=== PATIENT | male | born 1985 | race African-American/Black ===

== ENCOUNTER 2019-10-26 01:05 | Emergency (ER) | payer SELFPAY ==
[2019-10-26] VITALS (7 sets, daily range): BP systolic 111–128; BP diastolic 64–86; PULSE 80–109; RESP 16–20; TEMP 36.7; O2SAT 96–100
--- NOTE | ~2019-10-26 | CT_ITS ---
EXAMINATION: CT abdomen pelvis w con INDICATION: Abdominal pain, history of Crohn disease TECHNIQUE: Computed tomographic images of the abdomen and pelvis were obtained after the administrati on of 100 cc of Omnipaque 350 intravenous contrast. The dose-length product (DLP) was 497.14 mGy-cm. Automated exposure control and iterative reconstruction technique were employed. COMPARISON: None available FINDINGS: The lung bases are clear. The heart size is normal. The liver, spleen, pancreas, gallbladde r, and adrenal glands are normal. The kidneys are unremarkable. No pathologically enlarged abdominal or pelvic lymph nodes are identified. There is no free intraperitoneal gas. There is wall thickening and stricture of the terminal ileum was mild dilation of the terminal ileum immediately proximal to t he affected segment. Mild wall thickening is also seen throughout the ascending and transverse colon. A Seton stitch is noted. IMPRESSION: 1. Terminal ileitis and mild colitis of the ascending and transverse colon, consistent with history o f Crohn disease. Reviewed, dictated and finalized at location A. IMPRESSION: 1. Terminal ileitis and mild colitis of the ascending and transverse colon, con sistent with history of Crohn disease.
[2019-10-26 01:34] LABS: Basophils Percent Auto 0.4 % (0.2-1.2); Eosinophils Absolute Auto 0.3 K/mm3 (0-0.3); Eosinophils Percent Auto 2.8 % (0-4.4); Hematocrit 46.6 % (42.0-52.0); Hemoglobin 15.5 g/dL (14.0-18.0); Immature Granulocyte Absolute 0.07 K/mm3 (0.00-0.031); Immature Granulocyte Percent A 0.8 % (0-0.5); Lymphocytes Absolute Auto 0.88 K/mm3 (0.9-3.2); Lymphocytes Percent Auto 9.8 % (18.3-44.2); Mean Corpuscular HGB Conc 33.3 g/dl (32-36); Mean Corpuscular Hemoglobin 30.2 pg (26-34); Mean Corpuscular Volume 90.8 fl (80-100); Mean Platelet Volume 9.9 fl (7.4-10.4); Monocytes Absolute Auto 1.3 K/mm3 (0.1-0.6); Monocytes Percent Auto 14.7 % (2.6-8.5); Neutrophils Absolute Auto 6.4 K/mm3 (1.3-6.7); Neutrophils Percent Auto 71.5 % (45.5-73.1); Platelet Count Result 314 k/mm3 (150-375); Red Blood Count 5.13 M/mm3 (4.6-6.20); Red Cell Distribution Width 13.8 % (11.5-14.5)
[2019-10-26 01:41] LABS: Add Urine Microscopic? YES; Appearance Urine Clear (Clear); Bacteria Urine Trace /hpf; Bilirubin Urine Negative (Negative); Blood Urine 1+ (Negative); Color Urine Yellow (Yellow); Glucose Urine UA 3+ mg/dL (Negative); Ketones Urine Negative (Negative); Leukocyte Esterase Ur Negative LEU/UL (Negative); Mucus Urine Few /lpf; Nitrate Urine Negative (Negative); Protein Urine 1+ mg/dL (Negative); RBC Urine 0-2 /hpf (0-2); Specific Grav Ur 1.028 (1.001-1.035); Urobilinogen Urine Negative mg/dL (<2.0); WBC Urine 0-3 /hpf
[2019-10-26 01:46] LABS: Alanine Aminotransferase 89 U/L (4-50); Albumin Level 4.1 g/dL (3.5-5.1); Alkaline Phosphatase 351 U/L (38-126); Aspartate Amino Transferase 91 U/L (17-59); Bilirubin,Total 0.5 mg/dL (0.2-1.3); Blood Urea Nitrogen 12 mg/dL (9-20); Calcium 9.1 mg/dL (8.4-10.2); Carbon Dioxide 23 mmol/L (22-30); Chloride 102 mmol/L (98-107); Estimated Glomerular Filt Rate > 60; Glucose 349 mg/dL (75-110); Lipase 124 U/L (23-300); Potassium 4.1 mmol/L (3.4-5.0); Sodium 134 mmol/L (137-145)
[2019-10-26] MEDS: MORPHINE SULFATE 4 MG/ML INJ IV PUSH (02:05)
--- NOTE | 2019-10-26 05:18 | ED.ABDPAIN ---
HPI - Abdominal Pain General Chief Complaint: Abdominal Pain Stated Complaint: Katia's Flare-up Time Seen by Provider: 10/26/19 01:42 History of Present Illness HPI narrative: Patient is a 34-year-old male who presents the ER with abdominal discomfort. Patient has history of Crohn's disease and feels like he is having a Crohn's flare. Is been having this time discomfort over the last 3 to 4 days. Associated with loose stools with occasional blood. He is from [place] where he has a GI physician. He has not been on his Humira for 2 months or more. He reports he has fistulous tracts with drains in place. He has been having some mild pain around his left perianal area with some mild discharge. No fevers or chills or sweats. Patient also reports noncompliance over the last 24 hours with his insulin. Patient is a pharmaceutical detailer and passing through town Related Data Allergies Allergy/AdvReac Type Severity Reaction Status Date / Time No Known Allergies Allergy Verified 10/26/19 01:47 Review of Systems Review of Systems: All systems reviewed & are unremarkable except as noted in HPI and below Constitutional: Constitutional: Denies chills, Denies fever(s) and Denies weakness ENT: Denies nasal congestion and Denies sore throat Gastrointestinal: Gastrointestinal: Reports abdominal pain, Reports diarrhea, Denies nausea and Denies vomiting Genitourinary: Genitourinary: Denies dysuria and Denies urinary frequency PMFSH Past Medical History Medical History (Updated 10/26/19 @ 06:00 by Killian Painting MD) Crohn's disease Type 1 diabetes Surgical History Surgical History (Updated 10/26/19 @ 05:57 by Killian Painting MD) S/P partial colectomy Social History Social History (Updated 10/26/19 @ 05:58 by Killian Painting MD) Smoking status: Never smoker Gender identity (if verbalized by the patient): Male Exam Narrative: Exam Narrative: GENERAL: Well-appearing, well-nourished, and in no acute distress. HEAD: Normocephalic, atraumatic. ENT: Mucous membranes moist. CHEST: Clear to auscultation. No respiratory distress. HEART: Regular rate and rhythm. Normal peripheral pulses. ABDOMEN: Soft, mild diffuse discomfort without point tenderness or guarding, nondistended, normal active bowel sounds. Fistulous tract left medial gluteal region with drain intact. Clear fluid surrounding the area but no purulent discharge. No cellulitis. EXTREMITIES: Normal range of motion. No edema. SKIN: Warm, dry, no rash. NEURO: Alert and oriented x3. Course Course Emergency Course: Patient informed of results. Will treat with a prednisone taper over the next month which is typical treatment for his flares according to him. Reports he will be compliant with his insulin. I have encouraged him return to [place] sooner than 2 weeks time when he has a follow-up appointment with his GI doctor. Vital Signs Vital signs: Vital Signs Temperature 98.1 F 10/26/19 01:07 Pulse Rate 109 H 10/26/19 01:07 Respiratory Rate 16 10/26/19 01:07 Blood Pressure 122/77 10/26/19 01:07 Pulse Oximetry 99 10/26/19 01:07 Temperature 98.1 F 10/26/19 01:07 Pulse Rate 86 10/26/19 03:28 Respiratory Rate 20 10/26/19 03:28 Blood Pressure 118/82 10/26/19 03:28 Pulse Oximetry 96 10/26/19 03:28 MDM - Abdominal Pain Lab Data Result diagrams: 10/26/19 01:27 10/26/19 01:27 Labs: Lab Results 10/26/19 10/26/19 10/26/19 Range/Units 01:27 01:27 01:27 WBC 9.0 (4.5-10.0) K/mm3 RBC 5.13 (4.6-6.20) M/mm3 Hgb 15.5 (14.0-18.0) g/dL Hct 46.6 (42.0-52.0) % MCV 90.8 (80-100) fl MCH 30.2 (26-34) pg MCHC 33.3 (32-36) g/dl RDW 13.8 (11.5-14.5) % Plt Count 314 (150-375) k/mm3 MPV 9.9 (7.4-10.4) fl Immature Gran % (Auto) 0.8 H (0-0.5) % Neut % (Auto) 71.5 (45.5-73.1) % Lymph % (Auto) 9.8 L (18.3-44.2) % [place] % (Auto) 14.7 H (2.6-8.5)
[2019-10-26] MEDS: predniSONE 20 MG TABLET 40 MG PO (06:06)
== END 2019-10-26 06:45 | disposition home or self-care (01) ==
PROVIDERS: Emergency Provider Emergency Medicine
DX: K50.90 Crohn's disease, unspecified, without complications (principal); E10.9 Type 1 diabetes mellitus without complications; Z90.49 Acquired absence of other specified parts of digestive tract
CPT/HCPCS: 36415; 74177; 80053; 81001; 83690; 85025; 96374; 99284; J2270; J7512; Q9967